=== PATIENT | male | born 1970 | race Asian ===

== ENCOUNTER 2020-12-09 12:52 | Emergency (ER) | payer OTHER ==
[2020-12-09] MEDS ORDERED: Acetaminophen 500 MG TAB ONE (14:02)
== END 2020-12-09 14:28 | disposition home or self-care (01) ==
LOC: ERS 12:52
DX: I10 Essential (primary) hypertension (principal); K21.9 Gastro-esophageal reflux disease without esophagitis; F17.210 Nicotine dependence, cigarettes, uncomplicated; Z79.899 Other long term (current) drug therapy
CPT/HCPCS: 93005

== ENCOUNTER 2025-04-21 09:41 | Emergency (ER) | payer OTHER ==
[2025-04-21 10:20] LABS: #Basophils 0.05 10x3/uL (0.0-0.2); #Eosinophils 0.19 10x3/uL (0.0-0.7); #Monocytes 0.90 10x3/uL (0.11-0.59); #Neutrophils 8.60 10x3/uL (1.40-6.50); %Basophils 0.4 % (0.0-1.0); %Eosinophils 1.7 % (0.0-10.0); %Lymphocytes 14.0 % (21.0-51.0); %Monocytes 7.9 % (0.0-10.0); %Neutrophils 75.6 % (42.0-75.0); Hematocrit 48.2 % (42.0-52.0); Hemoglobin 15.9 g/dL (14.0-18.0); Mean Corpuscular Hemoglobin 32.2 pg (27.0-31.0); Mean Corpuscular Volume 97.6 fL (78.0-98.0); Platelet Count 150 10x3/uL (130-400); Red Blood Cell (RBC) Count 4.94 mill/uL (4.70-6.10); White Blood Cell (WBC) Count 11.38 10x3/uL (4.8-10.8)
[2025-04-21 10:34] LABS: ALT (SGPT) 39 U/L (Less than 45); AST (SGOT) 37 U/L (11-34); Albumin 4.5 g/dL (3.1-4.5); Alkaline Phosphatase 87 U/L (40-110); Anion Gap 15 mmol/L (10-20); BUN (Urea Nitrogen) 18 mg/dL (8.4-25.7); Bilirubin, Total 0.6 mg/dL (0.3-1.2); Calc. Creatinine Clearance 0 mL/min (70-130); Calcium 9.7 mg/dL (7.8-10.44); Carbon Dioxide 25 mmol/L (22-29); Chloride 103 mmol/L (98-107); Globulin 3.4 g/dL (2.4-3.5); Glucose 124 mg/dL (70-105); Lipase 22 U/L (8-78); Potassium 5.0 mmol/L (3.5-5.1); Sodium 138 mmol/L (136-145)
[2025-04-21 10:48] LABS: Bacteria/HPF None Seen HPF (None Seen); CAUTI Indications for Culture Pelvic or flank pain; Glucose, Urine (Dipstick) Normal (Negative); Leukocyte Negative Leu/uL (Negative); Protein, Urine (Dipstick) Negative (Neg-Trace); RBC/HPF 0-3 HPF (0-3); Specific Gravity, Urine 1.018 (1.002-1.036); WBC/HPF 0-3 HPF (0-3)
[2025-04-21 10:55] LABS: Urine Culture Reflex No No
[2025-04-21] MEDS ORDERED: Iopamidol-370 76% 500 ML MDV (1 ML CHARGE) ONE (13:19)
== END 2025-04-21 12:39 | disposition home or self-care (01) ==
LOC: ERS 09:41
DX: K57.92 Diverticulitis of intestine, part unspecified, without perforation or abscess without bleeding (principal); F17.210 Nicotine dependence, cigarettes, uncomplicated
CPT/HCPCS: 36415; 74177; 80053; 81001; 83690; 85025